=== PATIENT | female | born 1945 | race Caucasian/White ===

== ENCOUNTER 2018-05-19 10:38 | Emergency (ER) | payer MEDICARE ==
[~2018-05-19] VITALS: Ht 167.6 cm; Wt 72.6 kg
[2018-05-19 10:45] VITALS: Ht 167.6 cm; Wt 72.6 kg
[2018-05-19 13:52] VITALS: BP 149/100
== END 2018-05-19 13:52 | disposition home or self-care (01) ==
LOC: ED 10:38
DX: S16.1XXA Strain of muscle, fascia and tendon at neck level, initial encounter (principal); S39.012A Strain of muscle, fascia and tendon of lower back, initial encounter; S00.93XA Contusion of unspecified part of head, initial encounter; I25.2 Old myocardial infarction; I10 Essential (primary) hypertension; V49.88XA Car occupant (driver) (passenger) injured in other specified transport accidents, initial encounter; Y93.I9 Activity, other involving external motion; Y92.413 State road as the place of occurrence of the external cause; Y99.8 Other external cause status